=== PATIENT | female | born 2000 | race Caucasian/White ===

== ENCOUNTER 2022-04-28 02:26 | Emergency (ER) | payer BC ==
[2022-04-28] MEDS ORDERED: Cetirizine 10 MG Tab PO ONE (04:14)
== END 2022-04-28 04:40 | disposition home or self-care (01) ==
LOC: JD.ED 02:26
DX: K14.0 Glossitis (principal); Z88.1 Allergy status to other antibiotic agents; Z79.899 Other long term (current) drug therapy; Z86.16 Personal history of COVID-19
CPT/HCPCS: 99282; 99283